=== PATIENT | male | born 1980 | race Caucasian/White ===

== ENCOUNTER → 2016-06-13 | Outpatient (CLI) | payer OTHER ==
--- NOTE | 2016-06-13 16:15 | Diagnostic Imaging Report ---
EXAMINATION: Three views of the paranasal sinuses. INDICATION: Chronic sinusitis. FINDINGS: The visualized frontal sinuses, the right maxillary sinuses and the ethmoidal air cells appear to be aerated. There is opacity seen in the dependent portion of the left maxillary sinus. The mastoid air cells appear aerated. The sphenoidal sinuses appear aerated. IMPRESSION: There is suggestion of opacity or air-fluid level in the left maxillary sinus, could relate to underlying lesion or sinusitis. Correlate clinically and with CT scan of the sinuses as needed. Dictated by: Dictated on workstation # [id number]
== END ==
LOC: RAD 14:03
PROVIDERS: ATTEND Nurse Practitioner Family
DX: J32.9 Chronic sinusitis, unspecified (principal)
CPT/HCPCS: 70220

== ENCOUNTER → 2016-10-21 | Outpatient (CLI) | payer OTHER ==
--- NOTE | 2016-10-21 11:32 | Diagnostic Imaging Report ---
PROCEDURE: MRI lumbar spine. TECHNIQUE: Multiplanar, multisequence MRI of the lumbar spine was performed without contrast. INDICATION: Chronic back pain. History of jumping out of planes in the . The pain radiates to the buttocks and to the legs. FINDINGS: The alignment of the lumbar spine is satisfactory. The vertebral body heights are preserved. There is no evidence of an acute or chronic compression fracture. There is mild disc desiccation at L3/4 and L4/5 levels. No disc herniation however. There is normal marrow signal seen in the spine. The cauda equina and conus medullaris appear grossly unremarkable. There is a partially visualized 4.5 cm T2 hyperintense lesion in the left kidney not well evaluated on this exam. Renal ultrasound evaluation is recommended. This could be a cyst. T12/L1: Unremarkable. L1/2: Unremarkable. L2/3: There is no disc herniation. There is mild facet hypertrophy. No central canal, lateral recess or foraminal stenosis. L3/L4: No disc herniation. There is mild to moderate facet hypertrophy. No central canal or lateral recess stenosis. No foraminal stenosis. L4/5: There is no significant disc herniation. There is moderate facet hypertrophy. No central canal stenosis. There is lateral recess narrowing mild to moderate on the left and minimal on the right side. There is foraminal narrowing mild to moderate on the left and mild on the right side. L5/S1: No disc herniation, there is minimal facet hypertrophy. No central canal, lateral recess or foraminal stenosis. IMPRESSION: 1. Relatively mild disc and facet joint degenerative changes centered around L3/4 and L4/5 level. There is mild to moderate foraminal stenosis at L4/5 on the left side abutting the exiting left L4 spinal nerve. 2. Partially visualized large lesion in the left kidney. Renal ultrasound is recommended to rule out a solid mass. Dictated by: Dictated on workstation # [id number]
== END ==
LOC: RAD 10:06
PROVIDERS: ATTEND Family Medicine
DX: M48.06 Spinal stenosis, lumbar region (principal); N28.89 Other specified disorders of kidney and ureter
CPT/HCPCS: 72148

== ENCOUNTER → 2016-10-28 | Outpatient (CLI) | payer OTHER ==
--- NOTE | 2016-10-28 16:01 | Diagnostic Imaging Report ---
INDICATION: Followup of renal mass noted on MRI of the lumbar spine from 10/21/2016. EXAMINATION: Renal ultrasound. FINDINGS: There is a cyst off the lower pole of the left kidney, measuring 4.5 cm in diameter. This does appear benign in nature. Left kidney measures 12.3 x 5.2 x 5.2 cm. IMPRESSION: Benign renal cyst noted off the lower pole of the left kidney. Dictated by: Dictated on workstation # [id number]
== END ==
LOC: RAD 12:40
PROVIDERS: ATTEND Family Medicine
DX: N28.1 Cyst of kidney, acquired (principal)
CPT/HCPCS: 76775